=== PATIENT | male | born 1960 | race Caucasian/White ===

== ENCOUNTER 2018-03-06 06:42 | Day surgery (SDC) | payer OTHER ==
[2018-03-06 07:24] VITALS: BMI 26.4
[2018-03-06] MEDS ORDERED: PROPOFOL 20 ML ONE (08:58)
[2018-03-06] MEDS ORDERED: BUPIVACAINE HCL/EPINEPHRINE/PF 30 ML VIAL IJ ONE (09:45)
[2018-03-06] MEDS ORDERED: DEXAMETHASONE SOD PHOSPHATE/PF 10 MG/ML SDV ONE (10:07)
[2018-03-06] MEDS ORDERED: MIDAZOLAM HCL 2 MG/2 ML SINGLE DOSE VIAL ONE (10:08)
[2018-03-06] MEDS ORDERED: ROPIVACAINE HCL 0.5% 30ML VIAL ONE (10:08)
[2018-03-06] MEDS ORDERED: DEXAMETHASONE SOD PHOSPHATE 4 MG/1 ML VIAL ONE (10:35)
[2018-03-06] MEDS ORDERED: ceFAZolin SODIUM 1 GM VIAL ONE (10:35)
[2018-03-06] MEDS ORDERED: ONDANSETRON 4 MG/2 ML VIAL ONE (10:35)
[2018-03-06] MEDS ORDERED: oxyCODONE HCL 5 MG TABLET PO PRN ×2 (11:46→12:18)
[2018-03-06] MEDS ORDERED: oxyCODONE HCL 10 MG SUSTAINED ACTING TABLET PO ONE (11:46)
--- NOTE | 2018-03-06 11:49 | DS ---
Physical Examination Vital Signs: Vital Signs Temperature 98.2 F 03/06/18 07:22 Pulse Rate 68 03/06/18 07:22 Respiratory Rate 16 03/06/18 07:22 Blood Pressure 143/79 03/06/18 07:22 O2 Sat by Pulse Oximetry (%) 98 03/06/18 07:35 Discharge Summary Reason For Visit: ROTATOR CUFF TEAR RIGHT SHOULDER Condition: Good - Instructions Diet, Activity, Other Instructions: Post Operative Instructions: Shoulder Arthroscopy Dr Daniel Espinoza 1. Pain following a Shoulder Arthroscopy is variable and can be significant. Some patients will have more pain than others. You have been provided with a prescription for medication that contains a narcotic. You are not allowed to drive while on this medication. You can take Tylenol (Acetaminophen) when taking the pain medication ( it will NOT result in an overdose). Feel free to take medications such as Ibuprofen or Naprosyn in addition to the pain medicine if you do not have any problems with the NSAID class of medications. You should take Aspirin 81 mg TWICE a day for 10 days to decrease risk of blood clots. 2. Apply ice to the shoulder for 15 minutes every hour. You may continue this for as many days as necessary. 3. You may find sleeping on an incline (reclining chair) to be more comfortable for the first few days. 4. You must remain in your sling at all times except when showering. The only exception to this is to allow you to stretch your elbow a few times a day to prevent your hand and forearm from swelling. 5. You are not to use your arm to reach for anything, lift anything or carry anything until instructed otherwise. 6. You may remove the bandages in 24 hours. You may shower at that point. 7. Place band-aids on the glue after your shower.Do not put any creams or lotions on the incision until after the sutures are removed. 8. Please call the office to schedule a visit to have your incisions checked. 9. If for any reason you believe you may have an infection or are concerned, please feel free to call me. I can be reached through our office number 24 hours a day. 10. Please call our office with any questions; we will review the surgical findings during your post-operative visit. Disposition: HOME - Home Medications Comprehensive Discharge Medication List: Ambulatory Orders Canagliflozin [Invokana] 100 mg PO HS 02/26/18 Melatonin 5 mg PO HS PRN 02/26/18
--- NOTE | 2018-03-06 11:49 | OP ---
Operative Note - Note: Operative Date: 03/06/18 Pre-Operative Diagnosis: right shoulder partial biceps tear, rotator cuff tear Operation: RSA, biceps tenodesis, RCR Surgeon: Daniel Espinoza Anesthesiologist/RUBBER ENGRAVER: Jah Perla Anesthesia: General Operative Report Dictated: Yes
--- NOTE | 2018-03-06 11:56 | SURG ---
Surgery Building Serviceman Note Building Serviceman: Rigo Del Cid PA-C Date of Service: 03/06/18 Diagnosis: right shoulder partial biceps tear, rotator cuff tear Procedure: Right shoulder arthroscopy, biceps tenodesis, rotator cuff repair with anchors x3 I was present for the entirety of the operative procedure. For further detail, please refer to operative report. Visit type - Case Type Case Type: Scheduled - New patient This patient is new to me today: Yes Date on this admission: 03/06/18
[2018-03-06] MEDS ORDERED: oxyCODONE HCL 10 MG SUSTAINED ACTING TABLET ONE (12:09)
[2018-03-06] MEDS ORDERED: ACETAMINOPHEN 325 MG TABLET (FP) PO PRN (12:18)
[2018-03-06] MEDS ORDERED: ONDANSETRON 4 MG/2 ML VIAL IVPB PRN (12:18)
[2018-03-06] MEDS ORDERED: ONDANSETRON 4 MG/2 ML VIAL IVPUSH PRN (12:18)
[2018-03-06] MEDS ORDERED: LACTATED RINGERS SOLUTION 1,000 ML IV SCH (12:30)
[2018-03-06 12:40] VITALS: PULSE 78
[2018-03-06 13:01] VITALS: BP 122/68; TEMP 98
--- NOTE | 2018-03-11 14:46 | PATH ---
Surgical Pathology Report Patient Name: [facility]. Rec. #: [id number] /Age/Gender: 1960 (Age: 58) / M Account: [id number] Location: [facility] Taken: 03/06/2018 Received: 03/06/2018 Reported: 03/11/2018 Physicians: Daniel Espinoza M.D. Specimen(s) Received SHAVINGS RIGHT SHOULDER Clinical History Rotator cuff tear Final Diagnosis SHOULDER, RIGHT, ARTHROSCOPIC SHAVINGS: FIBROSYNOVIAL TISSUE, CARTILAGE, AND SKELETAL MUSCLE. Electronically Signed Veronica Rogers M.D. Gross Description Received in formalin, labeled "shavings right shoulder" is a 2 x 1.3 x 0.3 cm aggregate of white, soft to fibrous tissue. Outcomes Specialist tissue submitted in one cassette. AE/03/09/2018 ebram/03/09/2018
== END 2018-03-06 13:11 | disposition home or self-care (01) ==
LOC: FASU 06:42 → EDBD 10:30 → FASU 13:11
PROVIDERS: ATTEND Orthopaedic Surgery
PROC: 0RNJ4ZZ Release Right Shoulder Joint, Percutaneous Endoscopic Approach (ICD-10-PCS; 2018-03-06)
PROC: 0LQ14ZZ Repair Right Shoulder Tendon, Percutaneous Endoscopic Approach (ICD-10-PCS; principal; 2018-03-06 10:51)
PROC: 0LS14ZZ Reposition Right Shoulder Tendon, Percutaneous Endoscopic Approach (ICD-10-PCS; 2018-03-06 10:51)
DX: M75.101 Unspecified rotator cuff tear or rupture of right shoulder, not specified as traumatic (principal); M66.821 Spontaneous rupture of other tendons, right upper arm
CPT/HCPCS: 82962; 88304-TC